=== PATIENT | male | born 1990 | race Caucasian/White ===

== ENCOUNTER 2019-01-29 19:18 | Emergency (ER) | payer BC ==
[~2019-01-29] VITALS: Ht 172.7 cm; Wt 81.6 kg
--- NOTE | 2019-01-29 19:20 | NUR ---
called for triage; not in waiting room
--- NOTE | 2019-01-29 19:30 | NUR ---
called patient x2; not in waiting room.
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
[2019-01-29 19:48] VITALS: BP 124/87
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
[2019-01-29 20:30] VITALS: BP 130/74
[2019-01-29] MEDS ORDERED: IBUPROFEN600 MG ORAL (20:30)
[2019-01-29] MEDS ORDERED: ROBAXIN-750750 MG PO (20:30)
[2019-01-29 21:09] VITALS: BP 130/74
--- NOTE | 2019-01-29 21:10 | NUR ---
ER DISCHARGE NOTE: Patient is cleared to be discharged per ERMD, pt is aox4, on room air, with stable vital signs. pt was given dc and prescription instructions, pt was able to verbalize understanding, pt id band removed without complications. pt is able to ambulate with steady gait. pt took all belongings.
== END 2019-01-29 22:22 | disposition home or self-care (01) ==
LOC: EMR 20:17
DX: S16.1XXA Strain of muscle, fascia and tendon at neck level, initial encounter (principal); M62.830 Muscle spasm of back; M25.532 Pain in left wrist; V43.52XA Car driver injured in collision with other type car in traffic accident, initial encounter; Y92.9 Unspecified place or not applicable
CPT/HCPCS: 99282